=== PATIENT | female | born 1960 | race Two or more races ===

== ENCOUNTER 2017-03-15 20:03 | Emergency (ER) | payer OTHER, SELFPAY ==
[~2017-03-15] VITALS: Ht 157.5 cm; Wt 102.1 kg
[2017-03-15 20:08] VITALS: BP 127/75
[2017-03-15] MEDS ORDERED: NKM (20:08)
--- NOTE | 2017-03-15 21:08 | Emergency Room Report ---
History of Present Illness General Chief Complaint: Skin Rash/Abscess Source: Patient, Family Member Present Illness HPI 57 Pt. presents to the ED c/o in severity pain, swelling, and erythema of the left upper back. pt. reports originally a pimple 1 week ago which progressed to larger size and very tender. Denies fevers, chills, and history of immunocompromise, or neurological symptoms. She denies lesions elsewhere on the body. Denies swollen tender lymph nodes. Denies CP, Palpitations, LOC, AMS , dizziness, Changes in Vision, Sensation, paresthesias, or a sudden severe headache. Allergies: Coded Allergies: No Known Allergies (Verified Allergy, Unknown, 03/14/10) Patient History Past Medical History: see triage record Past Surgical History: none Pertinent Family History: none Last Menstrual Period: n/a Immunizations: UTD Reviewed Nursing Documentation: PMH: Agreed, PSxH: Agreed Nursing Documentation-PMH Past Medical History: No Stated History Review of Systems All Other Systems: negative except mentioned in HPI Physical Exam Vital Signs Date Time Temp Pulse Resp B/P (MAP) Pulse Ox O2 Delivery O2 Flow Rate FiO2 03/15/17 20:06 97.5 52 16 127/75 99 Room Air Sp02 EP Interpretation: reviewed, normal General Appearance: alert, GCS 15, non-toxic, mild distress Head: normocephalic, atraumatic ENT: hearing grossly normal, normal voice Neck: full range of motion Respiratory: chest non-tender, lungs clear, normal breath sounds, speaking full sentences Cardiovascular #1: regular rate, rhythm Rectal: deferred Genitourinary: normal inspection Musculoskeletal: back normal, gait/station normal, normal range of motion, non- tender Neurologic: alert, oriented x3, responsive, motor strength/tone normal, sensory intact, normal gait, speech normal, grossly normal Psychiatric: judgement/insight normal Skin: no rash, warm/dry, well hydrated, other - 2cm Fluctuant abscess with erythema on the left upper thoracic area. no streaking, no blisters. Lymphatic: no adenopathy Procedures Incision and Drainage Incision and Drainage : Consent: Verbal Site: Left upper thoracic area Blade Size: 11 I & D Procedure: betadine prep Wound Location: back Wound's Depth, Shape: superficial Wound Length (cm): 2 Wound Explored: contaminated - Thick purulent d/c expressed. Anesthesia: Lidocaine w/ Epi Volume Anesthetic (ccs): 1 Splint Applied?: No Sling Applied?: No Patient Tolerated: Well Complications: None Medical Decision Making PA Attestation Dr. thomson is my supervising Physician whom patient management has been discussed with. Diagnostic Impression: Primary Impression: Abscess ER Course 57 Pt. presents to the ED c/o in severity pain, swelling, and erythema of the left upper back. pt. reports originally a pimple 1 week ago which progressed to larger size and very tender. Denies fevers, chills, and history of immunocompromise, or neurological symptoms. She denies lesions elsewhere on the body. Denies swollen tender lymph nodes. Denies CP, Palpitations, LOC, AMS , dizziness, Changes in Vision, Sensation, paresthesias, or a sudden severe headache. Ddx considered but are not limited to cellulitis, abscess, cystic acne, necrotizing fasciitis, insect bite. Vital signs: are WNL, pt. is afebrile H&PE are most consistent with Abscess requiring I & D. ORDERS: none required at this time, the diagnosis is clinical ED INTERVENTIONS: -[place] PO -Bactrim DS PO -Keflex PO -I & D. - Tetanus -Bacitracin and sterile dressing is applied. DISCHARGE: At this time pt. is stable for d/c to home. Will provide printed patient care instructions, and any necessary prescriptions. Care plan and follow up instructions have been discussed with the patient prior to discharge. Last Vital Signs Date Time Temp Pulse Resp B/P (MAP) Pulse Ox O2 Delivery O2 Flow Rate FiO2 03/15/17 20:06 97.5 52 16 127/75 99 Room Air Disposition: HOME, SELF-CARE Condition: Stable Scripts Hydrocodone Bit/Acetaminophen 5-325* (NORCO 5-325*) 1 Each Tablet 1 TAB ORAL Q6H Y for For Pain, #10 TAB 0 Refills Prov: Alana Knight P.A. 03/15/17 Trimethoprim/Sulfamethoxazole 160/800* (BACTRIM DS TABLET*) 1 Each Tablet 1 TAB ORAL DAILY for 7 Days, #14 TAB Prov: Alana Knight P.A. 03/15/17 Cephalexin* (KEFLEX*) 500 Mg Capsule 500 MG ORAL EVERY 12 HOURS for 7 Days, #14 CAP 0 Refills Prov: Alana Knight 03/15/17 Patient Instructions: Abscess Additional Instructions: Take medications as directed. Follow up with a Primary Care Provider in 3-5 days, even if your symptoms have resolved. --Please review list of primary care clinics, if you do not already have a primary care provider Return sooner to ED if new symptoms occur, or current symptoms become worse. - Please note that this Emergency Department Report was dictated using JumpTimenewspaper inserter technology software, occasionally this can lead to erroneous entry secondary to interpretation by the dictation equipment. Alana Knight Mar 15, 2017 21:08
[2017-03-15] MEDS ORDERED: Cephalexin 500mg cap ORAL ONE (21:15)
[2017-03-15] MEDS ORDERED: Bacitracin Oint UD TOPIC ONE (21:15)
[2017-03-15] MEDS ORDERED: HYDROcodone/Acetamin 7.5/325 tab ORAL ONE (21:15)
[2017-03-15] MEDS ORDERED: Bactrim-DS 1 tab ORAL ONE (21:15)
[2017-03-15] MEDS ORDERED: NORCO 5-325 TA1 EACH ORAL (21:21)
[2017-03-15] MEDS ORDERED: BACTRIM DS TAB1 EAC1 ORAL (21:21)
[2017-03-15] MEDS ORDERED: CEPHALEXIN500 MG ORAL (21:21)
[2017-03-15] MEDS ORDERED: Tetanus/Diptheria/Pertussis Vaccine 0.5ml Syr IM ONE (21:30)
[2017-03-15 22:31] VITALS: BP 131/72
== END 2017-03-15 22:31 | disposition home or self-care (01) ==
LOC: EMR 20:20
DX: L02.212 Cutaneous abscess of back [any part, except buttock and flank] (principal); Z23 Encounter for immunization
CPT/HCPCS: 10060; 90471; 90715; 99283

== ENCOUNTER 2017-06-29 22:31 | Emergency (ER) | payer OTHER ==
[~2017-06-29] VITALS: Ht 170.2 cm; Wt 102.1 kg
[~2017-06-29 22:31] MED LIST: BACTRIM DS TAB1 EAC1 ORAL; CEPHALEXIN500 MG ORAL; NKM; NORCO 5-325 TA1 EACH ORAL
[2017-06-29] MEDS ORDERED: IBUPROFEN600 MG ORAL (23:37)
[2017-06-29] MEDS ORDERED: KEFLEX500 MG ORAL (23:37)
[2017-06-29] MEDS ORDERED: BACITRACIN ZIN1 EACH TOPIC (23:37)
--- NOTE | 2017-06-29 23:39 | Emergency Room Report ---
History of Present Illness General Chief Complaint: Lower Extremity Injury Source: Patient Present Illness HPI Patient is a 57-year-old female who presented after increased left great toe pain. Patient had injured her toe several weeks ago. She reported having increased pain. She reported injuring her toes unknown object. Up-to-date on her tetanus vaccine. He denies any fever. Allergies: Coded Allergies: No Known Allergies (Verified Allergy, Unknown, 03/14/10) Patient History Past Medical History: see triage record Reviewed Nursing Documentation: PMH: Agreed; PSxH: Agreed Nursing Documentation-PMH Past Medical History: No Stated History Review of Systems All Other Systems: negative except mentioned in HPI Physical Exam Vital Signs Date Time Temp Pulse Resp B/P (MAP) Pulse Ox O2 Delivery O2 Flow Rate FiO2 06/29/17 22:36 97.7 57 16 109/59 95 Room Air 97.7 General Appearance: well appearing, no apparent distress, alert, GCS 15 Head: normocephalic, atraumatic ENT: hearing grossly normal, normal voice Neck: full range of motion, supple Respiratory: no respiratory distress, speaking full sentences Cardiovascular #1: normal inspection, normal peripheral pulses, regular rate, rhythm Gastrointestinal: normal inspection, normal bowel sounds, non tender, soft Musculoskeletal: no calf tenderness Neurologic: alert, oriented x3, responsive, normal gait Psychiatric: mood/affect normal Skin: no rash Medical Decision Making Diagnostic Impression: Primary Impression: Contusion, toe ER Course Patient presented for toe pain. Different diagnosis included was not limited to fracture, osteomyelitis, hematoma, cellulitis among others. The x-ray imaging of the right foot two views interpreted by me showed normal bony alignment without evident fracture. The patient was given prescription for antibiotics to do the prolonged time of open wound. The patient blood sugar was noted to be less than 120. The patient was advised follow-up with her primary care physician for podiatry referral. Last Vital Signs Date Time Temp Pulse Resp B/P (MAP) Pulse Ox O2 Delivery O2 Flow Rate FiO2 06/29/17 23:21 97.7 06/29/17 22:36 57 16 109/59 95 Room Air Status: improved Disposition: HOME, SELF-CARE Condition: Stable Scripts Ibuprofen* (MOTRIN*) 600 Mg Tablet 600 MG ORAL Q8H PRN for For Pain, #30 TAB 0 Refills Prov: Lukas Garcia 06/29/17 Bacitracin Zinc* (BACITRACIN ZINC*) 1 Each Packet 1 APPLIC TOPIC THREE TIMES A DAY, #30 PACKET Prov: Lukas Garcia 06/29/17 Cephalexin* (KEFLEX*) 500 Mg Capsule 500 MG ORAL Q6H, #28 CAP 0 Refills Prov: Lukas Garcia 06/29/17 Patient Instructions: Foot Contusion Lukas Garcia Jun 29, 2017 23:39
[2017-06-29 23:45] VITALS: BP 109/59
--- NOTE | 2017-06-30 10:26 | Diagnostic Imaging Report ---
Indication: Pain in toes for 2 days Technique: 3 views of the left toes Comparison: none Findings: There is degenerative narrowing of the second third and fourth distal interphalangeal joints. The fifth distal interphalangeal joint is fused-normal anatomic variant. No acute fractures. No dislocations. No osseous erosions. The remainder the joint spaces are preserved. Impression: Degenerative changes No acute bony trauma
== END 2017-06-29 23:45 | disposition home or self-care (01) ==
LOC: EMR 23:00
DX: S90.112A Contusion of left great toe without damage to nail, initial encounter (principal); X58.XXXA Exposure to other specified factors, initial encounter; Y92.9 Unspecified place or not applicable
CPT/HCPCS: 82962; 99284

== ENCOUNTER 2018-02-15 23:14 | Emergency (ER) | payer OTHER ==
[~2018-02-15] VITALS: Ht 157.5 cm; Wt 113.4 kg
[~2018-02-15 23:14] MED LIST changes: +BACITRACIN ZIN1 EACH TOPIC; +IBUPROFEN600 MG ORAL; +KEFLEX500 MG ORAL
[2018-02-15 23:20] VITALS: BP 134/82
[2018-02-16 00:40] LABS: EOSINOPHILS % (AUTO) 1.2 % (0.0-3.0); HEMOGLOBIN 15.6 G/DL (12.0-16.0); LYMPHOCYTES % (AUTO) 34.7 % (20.0-45.0); MEAN CORPUSCULAR VOLUME 86 FL (80-99); MONOCYTES % (AUTO) 5.6 % (1.0-10.0); NEUTROPHILS % (AUTO) 57.5 % (45.0-75.0); PLATELET COUNT 207 K/UL (150-450); RED BLOOD COUNT 5.37 M/UL (4.20-5.40); WHITE BLOOD COUNT 10.8 K/UL (4.8-10.8)
[2018-02-16 00:47] LABS: ANION GAP 12 mmol/L (5-15); BLOOD UREA NITROGEN 12 mg/dL (7-18); CALCIUM 8.8 MG/DL (8.5-10.1); CARBON DIOXIDE 25 MMOL/L (21-32); CHLORIDE 106 MMOL/L (98-107); CREATININE 0.7 MG/DL (0.55-1.30); POTASSIUM 3.3 MMOL/L (3.5-5.1); SODIUM 143 MMOL/L (136-145)
[2018-02-16 01:00] LABS: ALANINE AMINOTRANSFERASE 33 U/L (12-78); ALBUMIN 3.4 G/DL (3.4-5.0); ALBUMIN/GLOBULIN RATIO 0.6 (1.0-2.7); ALKALINE PHOSPHATASE 127 U/L (46-116); ASPARTATE AMINO TRANSFERASE 11 U/L (15-37); BILIRUBIN,TOTAL 0.2 MG/DL (0.2-1.0); CKMB 1.2 NG/ML (0.0-3.6); CREATINE KINASE 84 U/L (26-308)
[2018-02-16 01:15] VITALS: BP 116/67
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
[2018-02-16 01:25] VITALS: BP 116/67
--- NOTE | 2018-02-16 13:47 | Diagnostic Imaging Report ---
Indication: Dyspnea Comparison: 03/14/2010 A single view chest radiograph was obtained. Findings: Mild interstitial edema, pulmonary vascular prominence and borderline cardiomegaly demonstrated. IMPRESSION: Suspected mild interstitial edema
--- NOTE | 2018-02-16 15:59 | Cardiology Report ---
APPROVED REPORT EKG Measurement Heart [id number] Sinus bradycardia Otherwise normal ECG
== END 2018-02-16 01:35 | disposition home or self-care (01) ==
LOC: EDBD 23:14 → EMR 23:29
DX: F10.129 Alcohol abuse with intoxication, unspecified (principal); R07.9 Chest pain, unspecified
CPT/HCPCS: 36415; 71045; 80053; 80329; 82550; 82553; 83690; 84484; 85025; 93005; 96360; 99284

== ENCOUNTER 2019-08-05 16:08 | Emergency (ER) | payer OTHER ==
[~2019-08-05] VITALS: Ht 170.2 cm; Wt 102.1 kg
[2019-08-05 16:17] VITALS: BP 116/72
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
[2019-08-05] MEDS ORDERED: Methocarbamol 500mg tab ORAL ONE (17:00)
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
[2019-08-05] MEDS ORDERED: ROBAXIN-750750 MG PO (17:38)
[2019-08-05] MEDS ORDERED: TYLENOL EXTRA500 MG ORAL (17:38)
[2019-08-05] MEDS ORDERED: LIDODERM700 M1 TOPIC (17:38)
[2019-08-05 17:54] VITALS: BP 116/72
--- NOTE | 2019-08-05 17:54 | NUR ---
ED Nurse Note: Pt cleared by ERPA for discharge. DC instructions/prescription was given and explained to pt and verbalized understanding of teachings. All medical deviecs such as ID band removed. Pt is AAO x4, ambulatory and left with all personal belongings.
== END 2019-08-05 17:54 | disposition home or self-care (01) ==
LOC: EMR 16:30
DX: T14.8XXA Other injury of unspecified body region, initial encounter (principal); M62.838 Other muscle spasm; V43.62XA Car passenger injured in collision with other type car in traffic accident, initial encounter; Y92.410 Unspecified street and highway as the place of occurrence of the external cause; E78.5 Hyperlipidemia, unspecified; R73.03 Prediabetes
CPT/HCPCS: 99282